=== PATIENT | female | born 1970 ===

== ENCOUNTER 2017-12-23 05:58 | Emergency (ER) | payer SELFPAY ==
[~2017-12-23] VITALS: Ht 157.5 cm; Wt 65.4 kg
[2017-12-23 06:47] LABS: BASOPHILS # (AUTO) 0.05 x10^3/uL (0-0.1); BASOPHILS % (AUTO) 1 % (0-1); EOSINOPHILS # (AUTO) 0.35 x10^3/uL (0-0.4); EOSINOPHILS % (AUTO) 5 % (1-7); LYMPHOCYTES # (AUTO) 1.99 x10^3/uL (1-3.4); LYMPHOCYTES % (AUTO) 27 % (22-44); MD NO; MEAN CORPUSCULAR HEMOGLOBIN 23.3 pg (27.0-34.8); MEAN CORPUSCULAR HGB CONC 30.9 g/dL (32.4-35.8); MEAN CORPUSCULAR VOLUME 75.2 fL (80-100); MEAN PLATELET VOLUME 7.2 fL (7.4-10.4); MONOCYTES # (AUTO) 1.03 x10^3/uL (0.2-0.8); MONOCYTES % (AUTO) 14 % (2-9); NEUTROPHILS % (AUTO) 54 % (42-75); PLATELET COUNT 355 x10^3/uL (130-400); RED BLOOD COUNT 3.45 x10^6/uL (3.82-5.3); RED CELL DISTRIBUTION WIDTH 18.5 % (9.6-15.2)
[2017-12-23] MEDS ORDERED: HYDROXYZINE PAMOATE 50MG CAP PO ONE (06:48)
[2017-12-23 06:57] LABS: INTERNATIONAL NORMALIZED RATIO 1.04 (0.93-1.1); PROTHROMBIN TIME 10.7 Seconds (9.6-11.5)
[2017-12-23 06:59] LABS: ALBUMIN 3.2 g/dL (3.4-5.0); ANION GAP 6 mmol/L (5-15); CALCIUM 8.1 mg/dL (8.5-10.1); CHLORIDE 109 mmol/L (98-107)
[2017-12-23 07:03] LABS: ALANINE AMINOTRANSFERASE 24 U/L (12-78); ALKALINE PHOSPHATASE 76 U/L (45-117); BILIRUBIN,TOTAL 0.4 mg/dL (0.2-1.0); CREATININE 0.78 mg/dL (0.55-1.02); TOTAL PROTEIN 6.6 g/dL (6.4-8.2)
[2017-12-23 07:12] VITALS: BP 125/70
[2017-12-23 07:43] LABS: CLUE CELLS PRESENT (NONE SEEN); WET PREP WBCS FEW (FEW)
[2017-12-23] MEDS ORDERED: FLUCONAZOLE 100 MG TABLET PO ONE (08:00)
[2017-12-23] MEDS ORDERED: FLUCONAZOLE 100 MG TABLET ONE (08:41)
[2017-12-23] MEDS ORDERED: CEFTRIAXONE 250 MG ONE (08:47)
[2017-12-23] MEDS ORDERED: AZITHROMYCIN 250 MG TABLET ONE (08:47)
[2017-12-23] MEDS ORDERED: CEFTRIAXONE 250 MG IM ONE (09:00)
[2017-12-23] MEDS ORDERED: AZITHROMYCIN 500 MG TABLET PEG ONE (09:00)
[2017-12-23] MEDS ORDERED: metroNIDAZOLE 500 MG TABLET ONE (09:08)
[2017-12-23] MEDS ORDERED: metroNIDAZOLE 500 MG TABLET PO ONE (09:30)
== END 2017-12-23 09:28 | disposition home or self-care (01) ==
LOC: ED 09:22
DX: A59.01 Trichomonal vulvovaginitis (principal); F32.9 Major depressive disorder, single episode, unspecified; F17.200 Nicotine dependence, unspecified, uncomplicated
CPT/HCPCS: 36415; 80053; 85025; 85610; 87210; 87491; 87591; 87808; 96372; 99284; J0696